=== PATIENT | female | born 1935 | race Caucasian/White ===

== ENCOUNTER 2017-08-20 15:57 | Inpatient (IN) ==
[2017-08-20] MEDS ORDERED: MORPHINE 4 MG/1 ML VIAL IV STA (19:48)
[2017-08-20] MEDS ORDERED: ONDANSETRON 4 MG/2 ML VIAL IV STA (19:48)
[2017-08-20 20:31] LABS: Apearance,Urine Slightly Hazy (Clear); Bacteria,Urine Occasional /HPF (Few); Bilirubin,Urine Negative (Negative); Blood, Urine Negative (Negative); Glucose,Urine (UA) Negative (Negative); Ketones,Urine 5 mg/dL (Negative); Mucus,Urine Occasional /LPF (Occasional); Nitrite,Urine Negative (Negative); Protein,Urine Negative; RBC,Urine 1 /HPF (0-4); Squamous Epithelial Cell,Urine Occasional /HPF (0-10); Transitional Epi Cells,Urine Occasional /HPF (<1); Urine Color Yellow (Yellow); Urine Specific Gravity 1.016 (1.001-1.035); Urine Urobilinogen < 2.0 EU/DL (0.2-1.0); WBC,Urine 15 /HPF (0-6)
[2017-08-20 20:52] LABS: Basophils # 0.1 10*3/uL (0.0-0.2); Basophils % 0.7 % (0.0-0.8); Eosinophils # 0.2 10*3/uL (0.0-0.87); Eosinophils % 1.9 % (0.00-10.9); Hematocrit 47.3 VOL% (35.7-47.0); Hemoglobin 15.6 GM/DL (12.0-16.0); Immature Granulocytes Absolute 0.11 #; Lymphocytes # 3.1 10*3/uL (1.4-4.0); Lymphocytes % 28.6 % (21.3-54.2); Mean Corpuscular Hemoglobin 31 PG (27-34); Mean Corpuscular Volume 93.1 FL (87-102); Mean Platelet Volume 11.3 FL (9.6-12.0); Monocytes # 0.9 10*3/uL (0.11-0.8); Monocytes % 8.2 % (1.7-12.7); Neutrophils # 6.5 10*3/uL (1.4-7.4); Neutrophils % 59.6 % (38.7-73.9); Platelet Count 249 T/CUMM (130-400); Red Blood Count 5.08 MC/CUMM (3.8-5.5); Red Cell Distribution Width 12.9 % (9.3-17.3)
[2017-08-20 21:15] LABS: Alanine Aminotransferase 73 U/L (13-56); Albumin 3.8 G/DL (3.4-5.0); Alkaline Phosphatase 76 U/L (45-117); Aspartate Amino Transferase 47 U/L (0-37); Blood Urea Nitrogen 17 MG/DL (7-18); Calcium 9.3 MG/DL (8.5-10.1); Glucose 150 MG/DL (74-106); Osmolality,Calculated 279.7 MOS/KG (273-304); Potassium 4.3 MMOL/L (3.5-5.1); Sodium 138 MMOL/L (136-145)
[2017-08-20 21:18] LABS: Lactic Acid 3.3 MMOL/L (0.4-2.0)
[2017-08-20] MEDS ORDERED: SODIUM CHLORIDE 0.9% 1,000 ML IV STA (21:27)
[2017-08-20] MEDS ORDERED: LEVOFLOXACIN INJ 500 MG in PREMIX 1 EACH IV STA (21:50)
[2017-08-20] MEDS ORDERED: ACETAMINOPHEN 325 MG TABLET PO PRN (21:51)
[2017-08-20] MEDS ORDERED: ONDANSETRON 4 MG/2 ML VIAL IV PRN (21:51)
[2017-08-20] MEDS ORDERED: MORPHINE 4 MG/1 ML VIAL IV PRN (21:58)
[2017-08-21] MEDS: traMADol 50 MG TABLET PO PRN ×2 (01:02→11:05)
[2017-08-21] MEDS: DEXTROSE 5% NACL 0.9% 1,000 ML IV SCH ×5 (05:44→22:20)
[2017-08-21 06:11] LABS: Basophils # 0.1 10*3/uL (0.0-0.2); Basophils % 0.9 % (0.0-0.8); Eosinophils # 0.2 10*3/uL (0.0-0.87); Eosinophils % 2.5 % (0.00-10.9); Hematocrit 38.8 VOL% (35.7-47.0); Immature Granulocytes % 1.2 %; Lymphocytes # 1.6 10*3/uL (1.4-4.0); Lymphocytes % 19.2 % (21.3-54.2); Mean Corpuscular HGB Conc 33.5 GM/DL (32-36); Mean Corpuscular Hemoglobin 31 PG (27-34); Mean Corpuscular Volume 91.5 FL (87-102); Mean Platelet Volume 11.7 FL (9.6-12.0); Monocytes # 0.8 10*3/uL (0.11-0.8); Monocytes % 10.2 % (1.7-12.7); Neutrophils # 5.4 10*3/uL (1.4-7.4); Platelet Count 185 T/CUMM (130-400); Red Blood Count 4.24 MC/CUMM (3.8-5.5); Red Cell Distribution Width 13.2 % (9.3-17.3); White Blood Count 8.1 T/CUMM (4-12)
[2017-08-21 06:44] LABS: Bilirubin,Total 1.2 MG/DL (0.2-1.0); Osmolality,Calculated 285.3 MOS/KG (273-304); Potassium 4.1 MMOL/L (3.5-5.1); Total Protein 5.8 G/DL (6.4-8.3)
[2017-08-21] MEDS ORDERED: traMADol 50 MG TABLET PO PRN (08:57)
[2017-08-21] MEDS ORDERED: PANTOPRAZOLE 40 MG TABLET PO SCH (09:00)
[2017-08-21] MEDS: LIDOCAINE 5% PATCH TRANSDERM SCH (09:25)
[2017-08-21] MEDS: DOCUSATE SODIUM 100 MG CAPSULE PO SCH ×2 (09:26→20:35)
[2017-08-21] MEDS: POLYETHYLENE GLYCOL POWDER 17 GM PACK PO SCH (09:26)
[2017-08-21] MEDS: COLESEVELAM 625 MG TABLET PO SCH ×3 (09:27→20:36)
[2017-08-21] MEDS: CALCIUM (CARBONATE) 500 MG TABLET PO SCH (09:27)
[2017-08-21] MEDS: FUROSEMIDE 40 MG TABLET PO SCH (09:27)
[2017-08-21] MEDS: amLODIPine 5 MG TABLET PO SCH (09:27)
[2017-08-21] MEDS: PANTOPRAZOLE 40 MG TABLET PO SCH (09:28)
[2017-08-21] MEDS: ASPIRIN EC 81 MG TABLET PO SCH (20:35)
[2017-08-22] MEDS: LIDOCAINE 5% PATCH TRANSDERM SCH (08:42)
[2017-08-22] MEDS: CALCIUM (CARBONATE) 500 MG TABLET PO SCH (09:23)
[2017-08-22] MEDS: DOCUSATE SODIUM 100 MG CAPSULE PO SCH ×2 (09:23→20:26)
[2017-08-22] MEDS: POLYETHYLENE GLYCOL POWDER 17 GM PACK PO SCH (09:23)
[2017-08-22] MEDS: BACLOFEN 10 MG TABLET PO SCH ×3 (09:24→20:26)
[2017-08-22] MEDS: FUROSEMIDE 40 MG TABLET PO SCH (09:25)
[2017-08-22] MEDS: amLODIPine 5 MG TABLET PO SCH (09:25)
[2017-08-22] MEDS: PANTOPRAZOLE 40 MG TABLET PO SCH (09:26)
[2017-08-22] MEDS: COLESEVELAM 625 MG TABLET PO SCH ×2 (09:26→22:02)
[2017-08-22] MEDS: DEXTROSE 5% NACL 0.9% 1,000 ML IV SCH (13:25)
[2017-08-22] MEDS: traMADol 50 MG TABLET PO PRN (13:27)
[2017-08-22] MEDS: ASPIRIN EC 81 MG TABLET PO SCH (20:26)
[2017-08-22] MEDS: LACTULOSE 20 GM/30 ML UDCUP PO SCH (20:26)
[2017-08-23] MEDS: LACTULOSE 20 GM/30 ML UDCUP PO SCH ×3 (05:59→22:13)
[2017-08-23 08:50] LABS: Basophils # 0.1 10*3/uL (0.0-0.2); Basophils % 0.8 % (0.0-0.8); Eosinophils # 0.2 10*3/uL (0.0-0.87); Eosinophils % 2.6 % (0.00-10.9); Hematocrit 41.2 VOL% (35.7-47.0); Hemoglobin 13.7 GM/DL (12.0-16.0); Immature Granulocytes % 0.9 %; Immature Granulocytes Absolute 0.07 #; Lymphocytes # 1.4 10*3/uL (1.4-4.0); Lymphocytes % 18.4 % (21.3-54.2); Mean Corpuscular HGB Conc 33.3 GM/DL (32-36); Mean Corpuscular Hemoglobin 31 PG (27-34); Mean Corpuscular Volume 92.4 FL (87-102); Mean Platelet Volume 11.2 FL (9.6-12.0); Monocytes # 0.8 10*3/uL (0.11-0.8); Monocytes % 10.3 % (1.7-12.7); Neutrophils # 5.1 10*3/uL (1.4-7.4); Platelet Count 188 T/CUMM (130-400); Red Blood Count 4.46 MC/CUMM (3.8-5.5); Red Cell Distribution Width 12.8 % (9.3-17.3); White Blood Count 7.6 T/CUMM (4-12)
[2017-08-23 09:23] LABS: Calcium 8.5 MG/DL (8.5-10.1); Osmolality,Calculated 280.4 MOS/KG (273-304); Potassium 3.7 MMOL/L (3.5-5.1)
[2017-08-23] MEDS: LIDOCAINE 5% PATCH TRANSDERM SCH (10:06)
[2017-08-23] MEDS: POLYETHYLENE GLYCOL POWDER 17 GM PACK PO SCH (10:06)
[2017-08-23] MEDS: DOCUSATE SODIUM 100 MG CAPSULE PO SCH ×2 (10:06→22:13)
[2017-08-23] MEDS: FUROSEMIDE 40 MG TABLET PO SCH (10:07)
[2017-08-23] MEDS: amLODIPine 5 MG TABLET PO SCH (10:07)
[2017-08-23] MEDS: CALCIUM (CARBONATE) 500 MG TABLET PO SCH (10:07)
[2017-08-23] MEDS: PANTOPRAZOLE 40 MG TABLET PO SCH (10:07)
[2017-08-23] MEDS: BACLOFEN 10 MG TABLET PO SCH ×3 (10:07→21:11)
[2017-08-23] MEDS: COLESEVELAM 625 MG TABLET PO SCH ×2 (10:08→22:14)
[2017-08-23] MEDS ORDERED: HYDROCORTISONE 2.5% RECTAL CREAM 30 GM TUBE TOP PRN (12:32)
[2017-08-23] MEDS: traMADol 50 MG TABLET PO PRN (13:15)
[2017-08-23] MEDS: ASPIRIN EC 81 MG TABLET PO SCH (22:13)
[2017-08-24] MEDS: LACTULOSE 20 GM/30 ML UDCUP PO SCH ×3 (05:03→21:20)
[2017-08-24 08:42] LABS: PT Patient Result 10.4 SECS
[2017-08-24] MEDS: COLESEVELAM 625 MG TABLET PO SCH ×2 (09:12→21:19)
[2017-08-24] MEDS: BACLOFEN 10 MG TABLET PO SCH ×3 (09:21→21:19)
[2017-08-24] MEDS: amLODIPine 5 MG TABLET PO SCH (09:21)
[2017-08-24] MEDS: PANTOPRAZOLE 40 MG TABLET PO SCH (09:22)
[2017-08-24] MEDS: traMADol 50 MG TABLET PO PRN (09:22)
[2017-08-24] MEDS: DOCUSATE SODIUM 100 MG CAPSULE PO SCH ×2 (09:25→21:19)
[2017-08-24] MEDS: FUROSEMIDE 40 MG TABLET PO SCH (09:25)
[2017-08-24] MEDS: ZINC OXIDE 16% PASTE 57 GM TUBE TOP SCH ×3 (09:25→21:20)
[2017-08-24] MEDS ORDERED: LACTATED RINGERS 1,000 ML IV SCH (11:30)
[2017-08-24] MEDS ORDERED: LIDOCAINE 2% 20 ML VIAL ONE (11:34)
[2017-08-24] MEDS ORDERED: PROPOFOL 200 MG/20 ML VIAL IV ONE (12:26)
[2017-08-24] MEDS ORDERED: fentaNYL 100 MCG/2 ML VIAL ONE (12:27)
[2017-08-24] MEDS ORDERED: ONDANSETRON 4 MG/2 ML VIAL IV PRN (12:35)
[2017-08-24] MEDS ORDERED: ONDANSETRON 4 MG/2 ML VIAL ONE (12:38)
[2017-08-24] MEDS ORDERED: MORPHINE 10 MG/1 ML VIAL ONE (12:38)
[2017-08-24] MEDS: MORPHINE 10 MG/1 ML VIAL IV PRN ×5 (12:43→13:12)
[2017-08-24] MEDS ORDERED: KETOROLAC 30 MG/1 ML VIAL IV ONE (13:21)
[2017-08-24] MEDS ORDERED: KETOROLAC 30 MG/1 ML VIAL ONE (13:28)
[2017-08-24] MEDS: POLYETHYLENE GLYCOL POWDER 17 GM PACK PO SCH ×2 (14:19→21:19)
[2017-08-24] MEDS: LIDOCAINE 5% PATCH TRANSDERM SCH (14:19)
[2017-08-24] MEDS: CALCIUM (CARBONATE) 500 MG TABLET PO SCH (14:19)
[2017-08-24] MEDS ORDERED: WARFARIN 5 MG TABLET PO SCH (18:00)
[2017-08-24] MEDS: ASPIRIN EC 81 MG TABLET PO SCH (21:19)
[2017-08-25] MEDS: LACTULOSE 20 GM/30 ML UDCUP PO SCH (04:07)
[2017-08-25 08:38] LABS: PT Patient Result 10.3 SECS
[2017-08-25] MEDS: COLESEVELAM 625 MG TABLET PO SCH (08:42)
[2017-08-25] MEDS ORDERED: ERGOCALCIFEROL 50,000 UNIT CAPSULE PO SCH (08:57)
[2017-08-25] MEDS: BACLOFEN 10 MG TABLET PO SCH (09:27)
[2017-08-25] MEDS: POLYETHYLENE GLYCOL POWDER 17 GM PACK PO SCH (09:27)
[2017-08-25] MEDS: LIDOCAINE 5% PATCH TRANSDERM SCH (09:27)
[2017-08-25] MEDS: DOCUSATE SODIUM 100 MG CAPSULE PO SCH (09:29)
[2017-08-25] MEDS: amLODIPine 5 MG TABLET PO SCH (09:29)
[2017-08-25] MEDS: FUROSEMIDE 40 MG TABLET PO SCH (09:29)
[2017-08-25] MEDS: CALCIUM (CARBONATE) 500 MG TABLET PO SCH (09:29)
[2017-08-25] MEDS: PANTOPRAZOLE 40 MG TABLET PO SCH (09:29)
[2017-08-25] MEDS: ZINC OXIDE 16% PASTE 57 GM TUBE TOP SCH (09:31)
[2017-08-25 11:47] VITALS: BP 109/72
== END 2017-08-25 11:50 | disposition home or self-care (01) | DRG 517 ==
LOC: N.ED 15:57 → N.EDINP 21:51 → N.5E 22:51
PROVIDERS: ADMIT Internal Medicine; ATTEND Internal Medicine

== ENCOUNTER 2018-02-08 11:02 | Inpatient (IN) ==
[2018-02-08] MEDS ORDERED: ONDANSETRON 4 MG/2 ML VIAL IV PRN (11:13)
[2018-02-08] MEDS ORDERED: ACETAMINOPHEN 325 MG TABLET PO PRN (11:13)
[2018-02-08] MEDS ORDERED: traMADol 50 MG TABLET PO PRN (13:42)
[2018-02-08] MEDS ORDERED: LINACLOTIDE 145 MCG CAPSULE PO PRN (13:42)
[2018-02-08] MEDS ORDERED: CYCLOBENZAPRINE 10 MG TABLET PO PRN (13:42)
[2018-02-08] MEDS ORDERED: VANCOMYCIN INJ 2,000 MG in SODIUM CHLORIDE 0.9% 500 ML IV ONE (14:00)
[2018-02-08 14:28] LABS: Basophils # 0.1 10*3/uL (0.0-0.2); Basophils % 0.9 % (0.0-0.8); Eosinophils # 0.1 10*3/uL (0.0-0.87); Eosinophils % 1.7 % (0.00-10.9); Hematocrit 44.8 VOL% (35.7-47.0); Hemoglobin 14.5 GM/DL (12.0-16.0); Immature Granulocytes % 0.5 %; Immature Granulocytes Absolute 0.04 #; Lymphocytes # 1.9 10*3/uL (1.4-4.0); Lymphocytes % 24.6 % (21.3-54.2); Mean Corpuscular HGB Conc 32.4 GM/DL (32-36); Mean Corpuscular Hemoglobin 29 PG (27-34); Mean Corpuscular Volume 90.3 FL (87-102); Monocytes # 0.7 10*3/uL (0.11-0.8); Monocytes % 8.7 % (1.7-12.7); Neutrophils % 63.6 % (38.7-73.9); Platelet Count 241 T/CUMM (130-400); Red Blood Count 4.96 MC/CUMM (3.8-5.5); Red Cell Distribution Width 13.2 % (9.3-17.3); White Blood Count 7.8 T/CUMM (4-12)
[2018-02-08 14:45] LABS: INR 3.1
[2018-02-08 14:47] LABS: Albumin 3.4 G/DL (3.4-5.0); Bilirubin,Total 0.5 MG/DL (0.2-1.0); Osmolality,Calculated 278.5 MOS/KG (273-304); Potassium 3.4 MMOL/L (3.5-5.1); Total Protein 7.8 G/DL (6.4-8.3)
[2018-02-08 14:49] LABS: PT Patient Result 33.3 SECS
[2018-02-08] MEDS ORDERED: SKIN HEALING OINT (AQUAPHOR) 50 GM TUBE TOP PRN (14:55)
[2018-02-08] MEDS: GENTAMICIN 0.1% CREAM 15 GM TUBE TOP SCH (16:24)
[2018-02-08] MEDS ORDERED: WARFARIN 10 MG TABLET PO SCH (18:00)
[2018-02-08] MEDS: POLYETHYLENE GLYCOL POWDER 17 GM PACK PO SCH (21:13)
[2018-02-08] MEDS: DOCUSATE SODIUM 100 MG CAPSULE PO SCH (21:17)
[2018-02-08] MEDS: ASPIRIN EC 81 MG TABLET PO SCH (21:17)
[2018-02-09] MEDS: VANCOMYCIN INJ 1,500 MG in SODIUM CHLORIDE 0.9% 500 ML IV SCH ×2 (04:12→16:34)
[2018-02-09] MEDS: traMADol 50 MG TABLET PO PRN ×2 (04:36→21:37)
[2018-02-09 05:08] LABS: INR 2.4
[2018-02-09 05:18] LABS: PT Patient Result 26.3 SECS
[2018-02-09] MEDS ORDERED: PANTOPRAZOLE 40 MG TABLET PO SCH (09:00)
[2018-02-09] MEDS ORDERED: ERGOCALCIFEROL 50,000 UNIT CAPSULE PO SCH (09:00)
[2018-02-09] MEDS: POLYETHYLENE GLYCOL POWDER 17 GM PACK PO SCH (09:09)
[2018-02-09] MEDS: CALCIUM (CARBONATE) 500 MG TABLET PO SCH (09:10)
[2018-02-09] MEDS: DOCUSATE SODIUM 100 MG CAPSULE PO SCH ×2 (09:10→21:38)
[2018-02-09] MEDS: amLODIPine 5 MG TABLET PO SCH (09:11)
[2018-02-09] MEDS: GENTAMICIN 0.1% CREAM 15 GM TUBE TOP SCH (09:11)
[2018-02-09] MEDS: FUROSEMIDE 40 MG TABLET PO SCH (09:11)
[2018-02-09] MEDS: PANTOPRAZOLE 40 MG TABLET PO SCH (09:11)
[2018-02-09] MEDS: POTASSIUM CHLORIDE 8 MEQ CAPSULE PO SCH (09:14)
[2018-02-09] MEDS: WARFARIN 5 MG TABLET PO SCH (17:26)
[2018-02-09] MEDS: ASPIRIN EC 81 MG TABLET PO SCH (21:38)
[2018-02-10] MEDS: VANCOMYCIN INJ 1,500 MG in SODIUM CHLORIDE 0.9% 500 ML IV SCH (04:26)
[2018-02-10 05:29] LABS: INR 1.6; PT Patient Result 17.3 SECS
[2018-02-10 05:32] LABS: Calcium 8.5 MG/DL (8.5-10.1); Osmolality,Calculated 282.4 MOS/KG (273-304); Potassium 4.3 MMOL/L (3.5-5.1)
[2018-02-10 05:56] LABS: Basophils % 0.7 % (0.0-0.8); Eosinophils # 0.2 10*3/uL (0.0-0.87); Eosinophils % 3.9 % (0.00-10.9); Hematocrit 39.5 VOL% (35.7-47.0); Hemoglobin 12.8 GM/DL (12.0-16.0); Immature Granulocytes % 0.6 %; Immature Granulocytes Absolute 0.03 #; Lymphocytes # 1.7 10*3/uL (1.4-4.0); Lymphocytes % 30.7 % (21.3-54.2); Mean Corpuscular HGB Conc 32.4 GM/DL (32-36); Mean Corpuscular Hemoglobin 30 PG (27-34); Mean Corpuscular Volume 91.4 FL (87-102); Mean Platelet Volume 11.6 FL (9.6-12.0); Monocytes # 0.5 10*3/uL (0.11-0.8); Monocytes % 9.8 % (1.7-12.7); Neutrophils # 2.9 10*3/uL (1.4-7.4); Neutrophils % 54.3 % (38.7-73.9); Platelet Count 205 T/CUMM (130-400); Red Blood Count 4.32 MC/CUMM (3.8-5.5); Red Cell Distribution Width 13.1 % (9.3-17.3); White Blood Count 5.4 T/CUMM (4-12)
[2018-02-10] MEDS: DOCUSATE SODIUM 100 MG CAPSULE PO SCH ×2 (09:07→20:31)
[2018-02-10] MEDS: CALCIUM (CARBONATE) 500 MG TABLET PO SCH (09:07)
[2018-02-10] MEDS: amLODIPine 5 MG TABLET PO SCH (09:07)
[2018-02-10] MEDS: POTASSIUM CHLORIDE 8 MEQ CAPSULE PO SCH (09:08)
[2018-02-10] MEDS: FUROSEMIDE 40 MG TABLET PO SCH (09:08)
[2018-02-10] MEDS: PANTOPRAZOLE 40 MG TABLET PO SCH (09:10)
[2018-02-10] MEDS: POLYETHYLENE GLYCOL POWDER 17 GM PACK PO SCH (09:10)
[2018-02-10] MEDS: traMADol 50 MG TABLET PO PRN ×2 (11:56→20:30)
[2018-02-10] MEDS: GENTAMICIN 0.1% CREAM 15 GM TUBE TOP SCH (11:57)
[2018-02-10] MEDS: WARFARIN 5 MG TABLET PO SCH (18:48)
[2018-02-10] MEDS: ASPIRIN EC 81 MG TABLET PO SCH (20:31)
[2018-02-11] MEDS ORDERED: VANCOMYCIN INJ 1,500 MG in SODIUM CHLORIDE 0.9% 500 ML IV SCH (06:00)
[2018-02-11 06:02] LABS: INR 1.4; PT Patient Result 14.7 SECS
[2018-02-11] MEDS: POLYETHYLENE GLYCOL POWDER 17 GM PACK PO SCH (09:48)
[2018-02-11] MEDS: CALCIUM (CARBONATE) 500 MG TABLET PO SCH (09:49)
[2018-02-11] MEDS: POTASSIUM CHLORIDE 8 MEQ CAPSULE PO SCH (09:49)
[2018-02-11] MEDS: amLODIPine 5 MG TABLET PO SCH (09:50)
[2018-02-11] MEDS: PANTOPRAZOLE 40 MG TABLET PO SCH (09:50)
[2018-02-11] MEDS: DOCUSATE SODIUM 100 MG CAPSULE PO SCH (09:50)
[2018-02-11] MEDS: FUROSEMIDE 40 MG TABLET PO SCH (09:50)
[2018-02-11 12:12] VITALS: BP 148/76
[2018-02-11] MEDS: GENTAMICIN 0.1% CREAM 15 GM TUBE TOP SCH (14:05)
[2018-02-11] MEDS ORDERED: WARFARIN 5 MG TABLET PO SCH (18:00)
== END 2018-02-11 14:50 | disposition home or self-care (01) | DRG 603 ==
LOC: N.2W 12:06 → N.2E 13:47
PROVIDERS: ADMIT Internal Medicine; ATTEND Internal Medicine

== ENCOUNTER 2019-04-04 17:17 | Observation (INO) ==
[2019-04-04] MEDS ORDERED: fentaNYL 100 MCG/2 ML VIAL IV STA (17:42)
[2019-04-04] MEDS ORDERED: ONDANSETRON 4 MG/2 ML VIAL IV STA (17:42)
[2019-04-04] MEDS ORDERED: LORazepam 2 MG/1 ML VIAL ONE (17:55)
[2019-04-04] MEDS ORDERED: LORazepam 2 MG/1 ML VIAL IV STA (19:17)
[2019-04-04 19:46] LABS: Basophils # 0.1 10*3/uL (0.0-0.2); Basophils % 0.4 % (0.0-0.8); Eosinophils % 0.1 % (0.00-10.9); Hematocrit 45.2 VOL% (35.7-47.0); Hemoglobin 14.6 GM/DL (12.0-16.0); Immature Granulocytes % 0.6 %; Immature Granulocytes Absolute 0.09 #; Lymphocytes # 0.9 10*3/uL (1.4-4.0); Lymphocytes % 6.4 % (21.3-54.2); Mean Corpuscular HGB Conc 32.3 GM/DL (32-36); Mean Corpuscular Volume 92.8 FL (87-102); Mean Platelet Volume 11.5 FL (9.6-12.0); Monocytes % 4.8 % (1.7-12.7); Neutrophils % 87.7 % (38.7-73.9); Platelet Count 131 T/CUMM (130-400); Red Blood Count 4.87 MC/CUMM (3.8-5.5); Red Cell Distribution Width 12.8 % (9.3-17.3)
[2019-04-04 20:06] LABS: Albumin 3.4 G/DL (3.4-5.0); Bilirubin,Total 0.6 MG/DL (0.2-1.0); Calcium 8.4 MG/DL (8.5-10.1); Osmolality,Calculated 273.1 MOS/KG (273-304); Total Protein 6.6 G/DL (6.4-8.3)
[2019-04-04] MEDS ORDERED: MORPHINE 4 MG/1 ML VIAL IV STA (20:16)
[2019-04-04] MEDS ORDERED: ONDANSETRON 4 MG/2 ML VIAL IV ONE (20:16)
[2019-04-04 20:44] LABS: Anisocytosis 1+; Macrocytosis Slight
[2019-04-04 20:45] LABS: Platelet Estimate Normal; Polychromasia Few
[2019-04-04 21:47] LABS: PT Patient Result 10.7 SECS (9.6-12.2); Partial Thromboplastin Time 22.8 SECS (20.8-36.0)
[2019-04-04] MEDS: ONDANSETRON 4 MG/2 ML VIAL IV PRN (23:42)
[2019-04-04] MEDS: MORPHINE 4 MG/1 ML VIAL IV PRN (23:44)
[2019-04-05 04:49] LABS: Basophils % 0.4 % (0.0-0.8); Eosinophils % 0.4 % (0.00-10.9); Hematocrit 40.9 VOL% (35.7-47.0); Hemoglobin 13.3 GM/DL (12.0-16.0); Immature Granulocytes % 0.6 %; Immature Granulocytes Absolute 0.06 #; Lymphocytes # 1.2 10*3/uL (1.4-4.0); Lymphocytes % 11.7 % (21.3-54.2); Mean Corpuscular HGB Conc 32.5 GM/DL (32-36); Mean Corpuscular Volume 92.1 FL (87-102); Mean Platelet Volume 11.8 FL (9.6-12.0); Monocytes % 7.9 % (1.7-12.7); Platelet Count 168 T/CUMM (130-400); Red Blood Count 4.44 MC/CUMM (3.8-5.5); Red Cell Distribution Width 12.8 % (9.3-17.3); White Blood Count 10.1 T/CUMM (4-12)
[2019-04-05 05:18] LABS: Bilirubin,Total 1.2 MG/DL (0.2-1.0); Total Protein 6.1 G/DL (6.4-8.3)
[2019-04-05] MEDS: ONDANSETRON 4 MG/2 ML VIAL IV PRN ×3 (05:57→18:05)
[2019-04-05] MEDS: MORPHINE 4 MG/1 ML VIAL IV PRN ×3 (06:00→18:00)
[2019-04-05] MEDS ORDERED: CYCLOBENZAPRINE 10 MG TABLET PO PRN ×2 (08:48→09:31)
[2019-04-05] MEDS ORDERED: traMADol 50 MG TABLET PO PRN (08:55)
[2019-04-05] MEDS ORDERED: PANTOPRAZOLE 40 MG TABLET PO SCH (09:00)
[2019-04-05] MEDS ORDERED: ENOXAPARIN 40 MG/0.4 ML SYRINGE SUBCUT SCH ×2 (09:00→09:30)
[2019-04-05] MEDS ORDERED: LINACLOTIDE 145 MCG CAPSULE PO PRN (09:31)
[2019-04-05] MEDS ORDERED: ERGOCALCIFEROL 50,000 UNIT CAPSULE PO SCH (09:45)
[2019-04-05] MEDS ORDERED: MORPHINE 4 MG/1 ML VIAL IV ONE (12:39)
[2019-04-05 16:50] VITALS: BP 150/77
[2019-04-05] MEDS ORDERED: traMADol 50 MG TABLET PO SCH (21:00)
[2019-04-05] MEDS ORDERED: ASPIRIN EC 81 MG TABLET PO SCH (21:00)
[2019-04-06] MEDS ORDERED: amLODIPine 5 MG TABLET PO SCH (09:00)
[2019-04-06] MEDS ORDERED: PANTOPRAZOLE 40 MG TABLET PO SCH (09:00)
[2019-04-06] MEDS ORDERED: metFORMIN 500 MG TABLET PO SCH (09:00)
[2019-04-06] MEDS ORDERED: CALCIUM (CARBONATE) 500 MG TABLET PO SCH (09:00)
[2019-04-06] MEDS ORDERED: POLYETHYLENE GLYCOL POWDER 17 GM PACK PO SCH (09:00)
[2019-04-06] MEDS ORDERED: FUROSEMIDE 40 MG TABLET PO SCH (09:00)
== END 2019-04-05 18:15 | disposition swing bed (61) ==
LOC: N.ED 17:17 → N.EDINP 17:17 → N.5E 22:16
PROVIDERS: ADMIT Internal Medicine; ATTEND Internal Medicine

== ENCOUNTER 2021-10-11 10:09 | Inpatient (IN) ==
[2021-10-11] MEDS ORDERED: DEXTROSE 10% 250 ML BAG IV PRN ×2 (10:34→12:00)
[2021-10-11] MEDS ORDERED: GLUCAGON 1 MG VIAL IM PRN ×2 (10:34→10:37)
[2021-10-11] MEDS ORDERED: ACETAMINOPHEN 325 MG TABLET PO PRN (10:34)
[2021-10-11] MEDS ORDERED: ONDANSETRON 4 MG/2 ML VIAL IV PRN (10:34)
[2021-10-11] MEDS ORDERED: DEXTROSE 50% 25 GM/50 ML VIAL IV PRN (10:37)
[2021-10-11 12:17] LABS: Basophils # 0.1 10*3/uL (0.0-0.2); Basophils % 0.6 % (0.0-0.8); Eosinophils # 0.1 10*3/uL (0.0-0.87); Eosinophils % 1.1 % (0.00-10.9); Hematocrit 43.3 VOL% (35.7-47.0); Hemoglobin 13.8 GM/DL (12.0-16.0); Immature Granulocytes % 0.7 %; Immature Granulocytes Absolute 0.07 #; Lymphocytes # 1.5 10*3/uL (1.4-4.0); Lymphocytes % 14.9 % (21.3-54.2); Mean Corpuscular HGB Conc 31.9 GM/DL (32-36); Mean Corpuscular Volume 91.4 FL (87-102); Mean Platelet Volume 10.8 FL (9.6-12.0); Monocytes # 0.6 10*3/uL (0.11-0.8); Monocytes % 6.6 % (1.7-12.7); Neutrophils % 76.1 % (38.7-73.9); Platelet Count 306 T/CUMM (130-400); Red Blood Count 4.74 MC/CUMM (3.8-5.5); Red Cell Distribution Width 13.3 % (9.3-17.3); White Blood Count 9.8 T/CUMM (4-12)
[2021-10-11 12:34] LABS: Albumin 3.2 G/DL (3.4-5.0); Bilirubin,Total 0.4 MG/DL (0.20-1.00); Calcium 9.7 MG/DL (8.5-10.1); Osmolality,Calculated 282.3 MOS/KG (273-304); Potassium 3.8 MMOL/L (3.5-5.1); Total Protein 7.2 G/DL (6.4-8.2)
[2021-10-11] MEDS ORDERED: CYCLOBENZAPRINE 10 MG TABLET PO PRN (14:08)
[2021-10-11] MEDS: INSULIN LISPRO 100 UNIT/ML SUBCUT SCH (17:01)
[2021-10-11] MEDS: VANCOMYCIN INJ 1,250 MG in SODIUM CHLORIDE 0.9% 250 ML IV SCH (17:01)
[2021-10-11] MEDS: DICLOFENAC 1% GEL 100 GM TUBE TOP SCH ×2 (18:50→21:19)
[2021-10-11] MEDS: ASPIRIN EC 81 MG TABLET PO SCH (21:17)
[2021-10-11] MEDS: metFORMIN 500 MG TABLET PO SCH ×2 (21:18→21:45)
[2021-10-11] MEDS: traMADol 50 MG TABLET PO SCH (21:18)
[2021-10-11] MEDS: ENOXAPARIN 40 MG/0.4 ML SYRINGE SUBCUT SCH (21:18)
[2021-10-11] MEDS: DOCUSATE SODIUM 100 MG CAPSULE PO SCH (21:18)
[2021-10-11] MEDS: NYSTATIN CREAM 15 GM TUBE TOP SCH (21:19)
[2021-10-11] MEDS: TRIAMCINOLONE 0.1% CREAM 15 GM TUBE TOP SCH (21:19)
[2021-10-11] MEDS: SOLIFENACIN 5 MG TABLET PO SCH (21:19)
[2021-10-12] MEDS: PANTOPRAZOLE 40 MG TABLET PO SCH (05:56)
[2021-10-12 06:29] LABS: Calcium 9.1 MG/DL (8.5-10.1); Osmolality,Calculated 277.5 MOS/KG (273-304); Potassium 3.6 MMOL/L (3.5-5.1)
[2021-10-12] MEDS ORDERED: PANTOPRAZOLE 40 MG TABLET PO SCH (06:30)
[2021-10-12 07:05] LABS: Basophils % 0.6 % (0.0-0.8); Eosinophils # 0.2 10*3/uL (0.0-0.87); Eosinophils % 2.8 % (0.00-10.9); Hematocrit 40.4 VOL% (35.7-47.0); Immature Granulocytes % 0.6 %; Immature Granulocytes Absolute 0.04 #; Lymphocytes # 1.8 10*3/uL (1.4-4.0); Lymphocytes % 28.5 % (21.3-54.2); Mean Corpuscular HGB Conc 32.2 GM/DL (32-36); Mean Corpuscular Volume 91.2 FL (87-102); Mean Platelet Volume 10.6 FL (9.6-12.0); Monocytes # 0.6 10*3/uL (0.11-0.8); Monocytes % 8.7 % (1.7-12.7); Neutrophils % 58.8 % (38.7-73.9); Platelet Count 264 T/CUMM (130-400); Red Blood Count 4.43 MC/CUMM (3.8-5.5); Red Cell Distribution Width 13.2 % (9.3-17.3); White Blood Count 6.3 T/CUMM (4-12)
[2021-10-12] MEDS: FUROSEMIDE 40 MG TABLET PO SCH (08:28)
[2021-10-12] MEDS: DOCUSATE SODIUM 100 MG CAPSULE PO SCH ×2 (08:28→21:20)
[2021-10-12] MEDS: traMADol 50 MG TABLET PO SCH ×2 (08:28→21:18)
[2021-10-12] MEDS: amLODIPine 5 MG TABLET PO SCH (08:29)
[2021-10-12] MEDS: INSULIN LISPRO 100 UNIT/ML SUBCUT SCH ×2 (09:28→16:44)
[2021-10-12] MEDS: metFORMIN 500 MG TABLET PO SCH ×2 (09:28→21:19)
[2021-10-12] MEDS: NYSTATIN CREAM 15 GM TUBE TOP SCH ×2 (09:29→21:29)
[2021-10-12] MEDS: TRIAMCINOLONE 0.1% CREAM 15 GM TUBE TOP SCH ×2 (09:29→21:29)
[2021-10-12] MEDS: DICLOFENAC 1% GEL 100 GM TUBE TOP SCH ×4 (09:29→21:29)
[2021-10-12] MEDS: VANCOMYCIN INJ 1,250 MG in SODIUM CHLORIDE 0.9% 250 ML IV SCH (16:38)
[2021-10-12] MEDS: POLYETHYLENE GLYCOL POWDER 17 GM PACK PO SCH (21:18)
[2021-10-12] MEDS: ENOXAPARIN 40 MG/0.4 ML SYRINGE SUBCUT SCH (21:18)
[2021-10-12] MEDS: ASPIRIN EC 81 MG TABLET PO SCH (21:18)
[2021-10-12] MEDS: SOLIFENACIN 5 MG TABLET PO SCH (21:19)
[2021-10-13] MEDS: PANTOPRAZOLE 40 MG TABLET PO SCH (05:37)
[2021-10-13] MEDS: FUROSEMIDE 40 MG TABLET PO SCH (08:59)
[2021-10-13] MEDS: DOCUSATE SODIUM 100 MG CAPSULE PO SCH ×2 (08:59→20:57)
[2021-10-13] MEDS: amLODIPine 5 MG TABLET PO SCH (08:59)
[2021-10-13] MEDS: traMADol 50 MG TABLET PO SCH ×2 (08:59→20:51)
[2021-10-13] MEDS: INSULIN LISPRO 100 UNIT/ML SUBCUT SCH ×2 (09:11→17:02)
[2021-10-13] MEDS: metFORMIN 500 MG TABLET PO SCH ×2 (09:12→20:51)
[2021-10-13] MEDS: TRIAMCINOLONE 0.1% CREAM 15 GM TUBE TOP SCH ×2 (09:12→20:53)
[2021-10-13] MEDS: DICLOFENAC 1% GEL 100 GM TUBE TOP SCH ×4 (09:12→20:53)
[2021-10-13] MEDS: NYSTATIN CREAM 15 GM TUBE TOP SCH ×2 (09:12→20:53)
[2021-10-13] MEDS: POLYETHYLENE GLYCOL POWDER 17 GM PACK PO SCH (09:12)
[2021-10-13] MEDS: VANCOMYCIN INJ 1,250 MG in SODIUM CHLORIDE 0.9% 250 ML IV SCH (17:02)
[2021-10-13] MEDS: ASPIRIN EC 81 MG TABLET PO SCH (20:51)
[2021-10-13] MEDS: ENOXAPARIN 40 MG/0.4 ML SYRINGE SUBCUT SCH (20:51)
[2021-10-13] MEDS: SOLIFENACIN 5 MG TABLET PO SCH (20:52)
[2021-10-14] MEDS: PANTOPRAZOLE 40 MG TABLET PO SCH (05:43)
[2021-10-14 06:17] LABS: Basophils # 0.1 10*3/uL (0.0-0.2); Basophils % 1.1 % (0.0-0.8); Eosinophils # 0.2 10*3/uL (0.0-0.87); Eosinophils % 3.4 % (0.00-10.9); Hematocrit 39.6 VOL% (35.7-47.0); Hemoglobin 12.6 GM/DL (12.0-16.0); Immature Granulocytes % 0.8 %; Immature Granulocytes Absolute 0.05 #; Lymphocytes # 1.7 10*3/uL (1.4-4.0); Lymphocytes % 27.6 % (21.3-54.2); Mean Corpuscular HGB Conc 31.8 GM/DL (32-36); Mean Corpuscular Volume 91.2 FL (87-102); Monocytes # 0.7 10*3/uL (0.11-0.8); Monocytes % 11.3 % (1.7-12.7); Neutrophils % 55.8 % (38.7-73.9); Platelet Count 287 T/CUMM (130-400); Red Blood Count 4.34 MC/CUMM (3.8-5.5); Red Cell Distribution Width 13.2 % (9.3-17.3); White Blood Count 6.1 T/CUMM (4-12)
[2021-10-14 06:38] LABS: Calcium 9.2 MG/DL (8.5-10.1); Osmolality,Calculated 280.3 MOS/KG (273-304); Potassium 3.8 MMOL/L (3.5-5.1)
[2021-10-14] MEDS ORDERED: ERGOCALCIFEROL 50,000 UNIT CAPSULE PO SCH (09:00)
[2021-10-14] MEDS: POLYETHYLENE GLYCOL POWDER 17 GM PACK PO SCH (09:19)
[2021-10-14] MEDS: INSULIN LISPRO 100 UNIT/ML SUBCUT SCH ×2 (09:20→18:03)
[2021-10-14] MEDS: DOCUSATE SODIUM 100 MG CAPSULE PO SCH ×2 (09:20→22:04)
[2021-10-14] MEDS: TRIAMCINOLONE 0.1% CREAM 15 GM TUBE TOP SCH ×2 (09:21→22:05)
[2021-10-14] MEDS: FUROSEMIDE 40 MG TABLET PO SCH (09:21)
[2021-10-14] MEDS: metFORMIN 500 MG TABLET PO SCH ×2 (09:21→22:04)
[2021-10-14] MEDS: NYSTATIN CREAM 15 GM TUBE TOP SCH ×2 (09:21→22:06)
[2021-10-14] MEDS: amLODIPine 5 MG TABLET PO SCH (09:21)
[2021-10-14] MEDS: traMADol 50 MG TABLET PO SCH ×2 (09:22→22:05)
[2021-10-14] MEDS: DICLOFENAC 1% GEL 100 GM TUBE TOP SCH ×4 (09:23→22:06)
[2021-10-14] MEDS: VANCOMYCIN INJ 1,250 MG in SODIUM CHLORIDE 0.9% 250 ML IV SCH (17:11)
[2021-10-14] MEDS: SOLIFENACIN 5 MG TABLET PO SCH (22:04)
[2021-10-14] MEDS: ASPIRIN EC 81 MG TABLET PO SCH (22:05)
[2021-10-14] MEDS: ENOXAPARIN 40 MG/0.4 ML SYRINGE SUBCUT SCH (22:05)
[2021-10-15] MEDS: PANTOPRAZOLE 40 MG TABLET PO SCH (06:11)
[2021-10-15] MEDS: amLODIPine 5 MG TABLET PO SCH (08:51)
[2021-10-15] MEDS: FUROSEMIDE 40 MG TABLET PO SCH (08:51)
[2021-10-15] MEDS: metFORMIN 500 MG TABLET PO SCH ×2 (08:51→20:22)
[2021-10-15] MEDS: traMADol 50 MG TABLET PO SCH ×2 (08:51→20:23)
[2021-10-15] MEDS: INSULIN LISPRO 100 UNIT/ML SUBCUT SCH ×2 (10:27→17:22)
[2021-10-15] MEDS: POLYETHYLENE GLYCOL POWDER 17 GM PACK PO SCH (10:28)
[2021-10-15] MEDS: DICLOFENAC 1% GEL 100 GM TUBE TOP SCH ×4 (10:28→20:25)
[2021-10-15] MEDS: DOCUSATE SODIUM 100 MG CAPSULE PO SCH ×2 (10:28→20:26)
[2021-10-15] MEDS: TRIAMCINOLONE 0.1% CREAM 15 GM TUBE TOP SCH ×2 (10:28→20:24)
[2021-10-15] MEDS: NYSTATIN CREAM 15 GM TUBE TOP SCH ×2 (10:28→20:24)
[2021-10-15] MEDS: VANCOMYCIN INJ 1,250 MG in SODIUM CHLORIDE 0.9% 250 ML IV SCH (17:19)
[2021-10-15] MEDS: ENOXAPARIN 40 MG/0.4 ML SYRINGE SUBCUT SCH (20:22)
[2021-10-15] MEDS: SOLIFENACIN 5 MG TABLET PO SCH (20:22)
[2021-10-15] MEDS: ASPIRIN EC 81 MG TABLET PO SCH (20:22)
[2021-10-16 06:09] LABS: Basophils # 0.1 10*3/uL (0.0-0.2); Basophils % 0.9 % (0.0-0.8); Eosinophils # 0.2 10*3/uL (0.0-0.87); Eosinophils % 2.9 % (0.00-10.9); Hematocrit 39.8 VOL% (35.7-47.0); Hemoglobin 12.5 GM/DL (12.0-16.0); Immature Granulocytes % 0.9 %; Immature Granulocytes Absolute 0.06 #; Lymphocytes # 1.8 10*3/uL (1.4-4.0); Lymphocytes % 26.4 % (21.3-54.2); Mean Corpuscular HGB Conc 31.4 GM/DL (32-36); Mean Corpuscular Volume 92.3 FL (87-102); Mean Platelet Volume 10.7 FL (9.6-12.0); Monocytes # 0.6 10*3/uL (0.11-0.8); Monocytes % 9.7 % (1.7-12.7); Neutrophils % 59.2 % (38.7-73.9); Platelet Count 270 T/CUMM (130-400); Red Blood Count 4.31 MC/CUMM (3.8-5.5); Red Cell Distribution Width 13.5 % (9.3-17.3); White Blood Count 6.6 T/CUMM (4-12)
[2021-10-16] MEDS: PANTOPRAZOLE 40 MG TABLET PO SCH (06:12)
[2021-10-16 06:26] LABS: Calcium 8.9 MG/DL (8.5-10.1); Osmolality,Calculated 282.3 MOS/KG (273-304); Potassium 4.2 MMOL/L (3.5-5.1)
[2021-10-16] MEDS: INSULIN LISPRO 100 UNIT/ML SUBCUT SCH (09:17)
[2021-10-16] MEDS: DOCUSATE SODIUM 100 MG CAPSULE PO SCH (09:26)
[2021-10-16] MEDS: metFORMIN 500 MG TABLET PO SCH (09:26)
[2021-10-16] MEDS: TRIAMCINOLONE 0.1% CREAM 15 GM TUBE TOP SCH (09:26)
[2021-10-16] MEDS: FUROSEMIDE 40 MG TABLET PO SCH (09:26)
[2021-10-16] MEDS: amLODIPine 5 MG TABLET PO SCH (09:27)
[2021-10-16] MEDS: DICLOFENAC 1% GEL 100 GM TUBE TOP SCH ×2 (09:27→13:51)
[2021-10-16] MEDS: NYSTATIN CREAM 15 GM TUBE TOP SCH (09:27)
[2021-10-16] MEDS: traMADol 50 MG TABLET PO SCH (09:27)
[2021-10-16] MEDS: POLYETHYLENE GLYCOL POWDER 17 GM PACK PO SCH (09:27)
[2021-10-16 12:36] VITALS: BP 142/75
== END 2021-10-16 14:09 | disposition home health service (06) | DRG 294 ==
LOC: N.5E 11:10
PROVIDERS: ADMIT Internal Medicine; ATTEND Internal Medicine